=== PATIENT | male | born 1975 | race Two or more races ===

== ENCOUNTER → 2018-03-10 | Outpatient (CLI) | payer MEDICARE, OTHER ==
[~2018-03-10] MED LIST: ACET500 PO; AMLO5 PO; ATOR10 PO; ATOR20 PO; Aranesp60 MCG/11 INJ; Bactrim Ds Tab1 EACH PO; CALCIUM CITRAT1 EAC3 PO; CIPR250 PO; DIAZ5 PO; FURO20 PO; FURO40 PO; Flagyl500 MG PO; GABA100 PO; HYDR10 PO; HYDRA25 PO; HYDSUL200 PO; MERIBIN5 MG PO; METR500 PO; NAPR500 PO; NEBI5 PO; NYST100SU PO; Naprosyn500 MG PO; Norco 5-325 Ta1 EACH PO; OMEP20ER PO; ONDA8 PO; OXYC5 PO; PERFECT IRON25 MG PO; PRED20 PO; Percocet 5-3251 EACH PO; Prednisone20 MG PO; RAMI5 PO; RXNAPNA550 PO; SIME80CH PO; SULTRIDS PO; TAMS.4ER PO; TRAM50 PO; Ultram50 MG PO; Valium5 MG PO; Vitamin D2000 UNIT PO; Zithromax250 MG PO; Zofran4 MG PO; Zofran8 MG PO
== END | disposition home or self-care (01) ==
LOC: LAB DAV 18:10
DX: R51 Headache (principal)
CPT/HCPCS: 85651

== ENCOUNTER 2018-07-30 19:47 | Inpatient (IN) | payer MEDICARE, OTHER ==
[~2018-07-30] VITALS: Ht 195.6 cm; Wt 96.4 kg
[~2018-07-30 19:47] MED LIST changes: +Calcium Acetat667 MG PO; +LOSA50 PO
[2018-07-30 20:24] LABS: BASOPHILS ABSOLUTE AUTO 0.06 K/mm3 (0.00-0.23); BASOPHILS PERCENT AUTO 1 % (0-2); EOSINOPHILS ABSOLUTE AUTO 0.22 K/mm3 (0.00-0.68); EOSINOPHILS PERCENT AUTO 3 % (0-6); Hematocrit 33.9 % (37.0-53.0); Hemoglobin 10.8 g/dL (13.5-17.5); IMMATURE GRAN ABSOLUTE AUTO 0.02 K/mm3 (0.00-0.10); IMMATURE GRAN PERCENT AUTO 0 % (0-1); LYMPHOCYTES ABSOLUTE AUTO 1.99 K/mm3 (0.84-5.20); LYMPHOCYTES PERCENT AUTO 25 % (21-46); MONOCYTES ABSOLUTE AUTO 1.21 K/mm3 (0.16-1.47); MONOCYTES PERCENT AUTO 15 % (4-13); Mean Corpuscular HGB Conc 31.9 g/dL (31.5-36.5); Mean Corpuscular Volume 97 fL (80-100); Mean Platelet Volume 10.7 fL (9.1-12.4); NEUTROPHILS ABSOLUTE AUTO 4.58 K/mm3 (1.96-9.15); NEUTROPHILS PERCENT AUTO 57 % (41-73); Platelet Count 260 K/mm3 (150-400); RDW Coefficient Variation 12.7 % (11.7-14.2); RDW Standard Deviation 45.3 fL (35.1-46.3); Red Blood Cell Count 3.48 M/mm3 (4.30-5.90); White Blood Cell Count 8.08 K/mm3 (4.00-11.30)
[2018-07-30 20:30] LABS: Calcium, Ionized (POC) 1.01 mmol/L (1.10-1.46); Chloride (POC) 104 mmol/L (98-108); Creatinine (POC) 16.7 mg/dL (0.8-1.3); Glucose (ISTAT POC) 91 mg/dL (70-99); Hemoglobin (POC) 10.2 g/dL (13.5-17.5); Potassium (POC) 5.1 mmol/L (3.5-5.5); Sodium (POC) 143 mmol/L (135-148); Total CO2 (POC) 26 mmol/L (21-32)
[2018-07-30 20:54] LABS: Troponin I 0.047 ng/mL (0.000-0.040)
[2018-07-30 21:17] LABS: Albumin, Blood 3.3 g/dL (3.4-5.0); Albumin/Globulin Ratio 1.1 (0.8-1.8); Bilirubin, Total 0.7 mg/dL (0.1-1.0); Bun/Creatinine Ratio 4.4 (12.0-20.0); Calcium, Blood 8.6 mg/dL (8.5-10.1); Creatinine, Blood 17.8 mg/dL (0.60-1.20); Potassium, Blood 5.4 mmol/L (3.5-5.5); Total Protein, Blood 6.3 g/dL (6.4-8.2)
[2018-07-30] MEDS ORDERED: ATEN25 PO (21:32)
[2018-07-30] MEDS ORDERED: Calcium Acetat667 MG PO (21:33)
[2018-07-30] MEDS ORDERED: DOCU100 PO (21:34)
[2018-07-30] MEDS ORDERED: CLOP75 PO (21:34)
[2018-07-30] MEDS ORDERED: LOSA50 PO (21:34)
[2018-07-30] MEDS ORDERED: OXYC10ER PO (21:38)
[2018-07-30] MEDS ORDERED: HYDSUL200 PO (21:41)
[2018-07-30] MEDS ORDERED: HYDRA25 PO (21:41)
[2018-07-30] MEDS ORDERED: AMLO5 PO (21:42)
[2018-07-30] MEDS ORDERED: GABA100 PO (21:42)
[2018-07-30 22:50] LABS: Magnesium, Blood 2.3 mg/dL (1.6-2.4); Phosphorus, Blood 3.9 mg/dL (2.5-4.9)
[2018-07-31] MEDS ORDERED: ROPI.25 (01:05)
--- NOTE | 2018-07-31 02:07 | NUR ---
ADMISSION: REPORT RECIEVED FROM REJI ED RN. PT TO UNIT AT ABOUT 0045. UPON ASSESSMENT PT IS DROWSY, AWAKENS TO VOICE AND IS A/O. BP CONTINUES TO BE ELEVATED AT 240/126, PT REPORT HE DOES HAVE A SMALL HEADACHE AND SOMEWHAT NAUSEATED. DECLINES NEED FOR MEDS AT THIS TIME AND STATES HE WANTS TO REST. PT RR AT 26, PT PUT ON 2L NC, PT DENIES SOB. ADMISSION CHARTING COMPLETED WITH PT SIGNIFICANT OTHER AT BEDSIDE. WILL CTM, AND FREQUENTLY ROUND
--- NOTE | 2018-07-31 02:13 | NUR ---
PT BP 220/127 AT 0153, DR. PINA CALLED AT 0155 CONCERNING PT BP AND MD MADE AWARE OF PT RR AND EFFORT SEE NEW ORDERS, WILL CTM.
--- NOTE | 2018-07-31 04:11 | NUR ---
PT GIVEN 10MG LABETALOL AND BUMEX AT 0240 AT 0358 BP CONTINUES TO BE ELEVATED AT 215/136. PT IS SLEEPING, DENIES NEED FOR PAIN OR NAUSEA MEDS AND ALL OTHER VSS. PT GIVEN HYDRALAZINE 20MG AT 0404, AND PAGE MADE TO
--- NOTE | 2018-07-31 04:31 | NUR ---
NEW ORDER FROM DR. PINA TO GIVE PT 0900 DOSE OF COZAAR AND NORVASC NOW. WILL GIVE AND CTM
[2018-07-31 04:36] LABS: Hemoglobin 10.9 g/dL (13.5-17.5)
[2018-07-31 04:54] LABS: Magnesium, Blood 2.6 mg/dL (1.6-2.4)
[2018-07-31 04:59] LABS: Cortisol, AM 6.3 ug/dL (6.7-22.6)
[2018-07-31 05:01] LABS: Albumin, Blood 3.4 g/dL (3.4-5.0); Anion Gap 11 mmol/L (6-16); Blood Urea Nitrogen 86 mg/dL (8-24); Bun/Creatinine Ratio 4.7 (12.0-20.0); CO2, Blood 24 mmol/L (21-32); Calcium, Blood 8.7 mg/dL (8.5-10.1); Chloride, Blood 107 mmol/L (98-108); Glomerular Filtration Rate 3 (60-); Glucose, Blood 126 mg/dL (70-99); Phosphorus, Blood 3.6 mg/dL (2.5-4.9); Potassium, Blood 5.6 mmol/L (3.5-5.5); Sodium, Blood 142 mmol/L (136-145)
--- NOTE | 2018-07-31 05:56 | NUR ---
SUMMARY: SEE PREVIOUS NOTES. NO ACUTE CHANGE SINCE ADMISSION. PT LAST BP 201/112 AT 0509, WILL RECHECK BEFORE SHIFT CHANGE. DR. PINA AWARE OF PT STATUS. PT REPORTS "SMALL HEADACHE" AND DENIES NAUSEA. ALL OTHER VSS, PT DENIES SOB, A/O, NO EMESIS. PT ABLE TO VOID X1. PT GIRLFRIEND AT BEDSIDE. PLAN IS FOR PT TO HAVE DIALYSIS TODAY. DR. ROBERTS CONSULTED. WILL CTM AND REPORT TO DAY RN
--- NOTE | 2018-07-31 07:46 | NUR ---
GRUPO AND VAISHNAVI GIVEN AT 0507 BY OMAR RN.
--- NOTE | 2018-07-31 09:41 | NUR ---
PT TO DIALYSIS
--- NOTE | 2018-07-31 14:27 | NUR ---
Echocardiogram completed.
--- NOTE | 2018-07-31 16:28 | NUR ---
FEBRILE PT HAD TEMP OF 101.3. MEDICATED PER ORDERS W/TYLENOL. RECHECKED AND TEMP NOW 100.9. NOTIFIED DR NICOLE.
--- NOTE | 2018-07-31 17:36 | NUR ---
SUMMARY PT RESTING IN BED. CONTINUES TO BE HYPERTENSIVE. BP IMPROVED SLIGHTLY FROM ADMIT. PT HAD DYALYSIS THIS AM. SPIKED FEVER OF 101.3 THIS AFTERNOON. GAVE TYLENOL PER ORDERS AND NOTIFIED DR NICOLE. ORDERS OBTAINED. MEDICATED THIS AFTERNOON FOR NAUSEA PER ORDERS. PT PLEASANT AND COOPERATIVE.
[2018-07-31 18:24] LABS: Source, Urine Voided
[2018-07-31 18:34] LABS: Appearance, Urine Clear (Clear); Bilirubin, Urine Neg (Neg); Blood, Urine 3+ (Neg); Color, Urine Yellow (P-Yellow); Glucose Qualitative, Urine 2+ (Neg); Ketones, Urine Neg (Neg); Leukocyte Esterase, Urine Neg (Neg); Nitrite, Urine Neg (Neg); Protein, Urine 4+ (Neg); Specific Gravity, Urine 1.015 (1.003-1.022); Urobilinogen, Urine NORM (Normal)
[2018-07-31 18:41] LABS: White Blood Cells, Urine 0-2 /hpf (0-5)
[2018-07-31 18:42] LABS: Bacteria Not Seen /hpf; Red Blood Cells, Urine 0-2 /hpf (0-2); Squamous Epithelial Cells Not Seen /hpf (Few)
[2018-08-01 04:13] LABS: BASOPHILS ABSOLUTE AUTO 0.05 K/mm3 (0.00-0.23); BASOPHILS PERCENT AUTO 1 % (0-2); EOSINOPHILS ABSOLUTE AUTO 0.08 K/mm3 (0.00-0.68); EOSINOPHILS PERCENT AUTO 1 % (0-6); Hematocrit 30.5 % (37.0-53.0); Hemoglobin 9.5 g/dL (13.5-17.5); IMMATURE GRAN ABSOLUTE AUTO 0.01 K/mm3 (0.00-0.10); IMMATURE GRAN PERCENT AUTO 0 % (0-1); LYMPHOCYTES ABSOLUTE AUTO 2.64 K/mm3 (0.84-5.20); LYMPHOCYTES PERCENT AUTO 40 % (21-46); MONOCYTES ABSOLUTE AUTO 1.04 K/mm3 (0.16-1.47); MONOCYTES PERCENT AUTO 16 % (4-13); Mean Corpuscular HGB 30.4 pg (26.0-34.0); Mean Corpuscular HGB Conc 31.1 g/dL (31.5-36.5); Mean Corpuscular Volume 98 fL (80-100); Mean Platelet Volume 10.6 fL (9.1-12.4); NEUTROPHILS ABSOLUTE AUTO 2.81 K/mm3 (1.96-9.15); NEUTROPHILS PERCENT AUTO 42 % (41-73); Platelet Count 242 K/mm3 (150-400); RDW Coefficient Variation 13.3 % (11.7-14.2); RDW Standard Deviation 47.5 fL (35.1-46.3); Red Blood Cell Count 3.12 M/mm3 (4.30-5.90); White Blood Cell Count 6.63 K/mm3 (4.00-11.30)
[2018-08-01 04:42] LABS: Magnesium, Blood 2.4 mg/dL (1.6-2.4)
[2018-08-01 05:30] LABS: Albumin, Blood 2.9 g/dL (3.4-5.0); Anion Gap 8 mmol/L (6-16); Blood Urea Nitrogen 69 mg/dL (8-24); Bun/Creatinine Ratio 4.7 (12.0-20.0); CO2, Blood 31 mmol/L (21-32); Chloride, Blood 103 mmol/L (98-108); Glomerular Filtration Rate 4 (60-); Glucose, Blood 103 mg/dL (70-99); Phosphorus, Blood 5.7 mg/dL (2.5-4.9); Potassium, Blood 5.6 mmol/L (3.5-5.5); Sodium, Blood 142 mmol/L (136-145)
--- NOTE | 2018-08-01 06:10 | NUR ---
SUMMARY PT WITH HTN ISSUES NOTED DURING DAY AND ONGOING TONIGHT. I CALLED DOCTOR AND RECEIVED ORDERS TO CHANGE SOME OF PTS PO DOSING AND INTERVALS. DR ODOM DID NOT WISH FOR ME TO TREAT WITH PRN IV DOSING WHILE MAKING THE ADJUSTMENTS. PTS HTN HAS IMPROVED TONIGHT WITH INCREASED DOSING AND FREQ OF HYDRALAZINE AND HE WILL BE TAKING AN INCREASED DOSE OF ATENOLOL STARTING THIS AM WELL. DR ROBERTS ALSO HERE TO SEE PT TONIGHT.I DISCUSSED WITH HIM ORDERS CHANGED PER DR ALDRIDGE.ALSO, PT/GIRLFRIEND REQUESTED PT HAVE ATIVAN FOR ONGOING HEADACHE THEY FELT ATIVAN HE RECEIVED PRIOR WAS HELPFUL FOR THIS.I GAVE ATIVAN PER NEW ORDER RECEIVED FROM DR ROBERTS. PT SLEEPING AT THIS TIME.CREAT AHS DECREASED SINCE DIALYSIS. NO DIALYSIS ORDERED FOR TODAY. AV FISTULA L UPPER ARM CONT WITH STRONG BRUIT AND THRILL.
--- NOTE | 2018-08-01 11:13 | NUR ---
DIALYSIS SURGICAL FLOOR RN CALLED AND SAID PT REFUSED DIALYSIS. DISCUSSED 5.6K+ WITH HER. WILL NOTIFY DR ROBERTS.
--- NOTE | 2018-08-01 11:16 | NUR ---
PT REFUSED HD TODAY, DR. ROBERTS NOTIFIED, HE WOULD LIKE PT TO HAVE HD FOR AT LEAST 2 HRS TODAY DUE TO POTASSIUM LEVEL OF 5.6, EXPLAINED TO PT AND PT AGREED TO 2 HRS. OF HD TODAY, ENLISTED ADVISOR ANA NOTIFIED.
--- NOTE | 2018-08-01 11:18 | NUR ---
DIALYSIS DR ROBERTS TALKED THE INTO RUNNING DUE TO K+
--- NOTE | 2018-08-01 17:51 | NUR ---
SUMMARY PT HAD HD TODAY, CONT. TO HAVE ELEVATED BP, SLIGHTLY BETTER AFTER TAKING BP MEDS THEN GOES BACK UP, DR. ROBERTS AWARE, NO C/O OF PAIN OR ANY OTHER DISCOMFORT TODAY, NO ACUTE CHANGES THIS SHIFT.
--- NOTE | 2018-08-02 02:42 | NUR ---
HEADACHE: PT C/O HEADACHE. PT REP PAIN INCREASING, IS CURRENTLY WORSE IT HAS BEEN ALL DAY. PT BP RECHECKED, CONT TO BE ELEVATED. CALL PLACED TO MD. PT HARMON, VITALS AND CURRENT BP AND PAIN MEDS REVIEWED W/MD. NEW ORDER FOR PRN PAIN MEDS REC AND TO CONT TO MEDICATE PER PRN BP MED ORDERS.
[2018-08-02 05:32] LABS: Hematocrit 32.7 % (37.0-53.0); Hemoglobin 10.2 g/dL (13.5-17.5)
[2018-08-02 05:57] LABS: Magnesium, Blood 2.3 mg/dL (1.6-2.4)
[2018-08-02 06:07] LABS: Anion Gap 9 mmol/L (6-16); Blood Urea Nitrogen 64 mg/dL (8-24); CO2, Blood 31 mmol/L (21-32); Chloride, Blood 102 mmol/L (98-108); Glomerular Filtration Rate 5 (60-); Glucose, Blood 102 mg/dL (70-99); Phosphorus, Blood 5.2 mg/dL (2.5-4.9); Potassium, Blood 5.6 mmol/L (3.5-5.5); Sodium, Blood 142 mmol/L (136-145)
--- NOTE | 2018-08-02 07:22 | NUR ---
PT BP REMAINED ELEVATED T/O NIGHT. PT DENIED CP/PRESSURE/SOB. BP MGD PER SCHTDULED AND PRN BP MEDS W/VERY LITTLE EFFECT. PT DID C/O WORSENING HEADACHE THIS AM; NOTIFIED, NEW PAIN MED ORDERS REC. PT DID REP SOME RELIEF AFTER MEDICATED. PT DENIED N/V, IS VOIDING URINE W/O DIFFICULTY. PT AMB INDEP, DENIED DIZZINESS WHEN UP. HOSPITALIST NOTIFIED OF BP TREND, DR ROBERTS IN THIS AM. PLAN FOR RENAL DOPPLAR TODAY. PT USING CALL LIGHT FOR ASSISTANCE, REP GIVEN TO DAY RN.
--- NOTE | 2018-08-02 08:19 | NUR ---
TELEPHONE CALL WITH DR ROBERTS: PT REFUSING DIALYSIS.
--- NOTE | 2018-08-02 08:23 | NUR ---
TELEPHONE CALL WITH IMAGING, DOPPLER AND US DONE ON . DOPPLER NOT READ YET, TECH WILL FOLLOW UP WITH DOCTOR.
--- NOTE | 2018-08-02 12:28 | NUR ---
CONSENT FOR CARE PT GAVE THIS FACULTY NEUROPSYCHOLOGIST PERMISSION TO ASSIST WITH CARE
--- NOTE | 2018-08-02 16:06 | NUR ---
Permission to access Patient gave this student nurse permission to access chart.
--- NOTE | 2018-08-02 18:42 | NUR ---
SHIFT SUMMARY PT A&OX4, TELE SINUS @ 63. HTN TX PER EMAR T/O SHIFT. HARMON PAIN TX WITH 50 MCGS FENT Q4. NAUSEA TX X1 WITH ZOFRAN, PT TAKING ORAL 5MG REGLAN. DECLINED DIALYSIS AND HEPARIN. AMB IND TO BRP, REP VOIDING WELL. DENIES CP/SOB AND NEED FOR OXYGEN. S/O AT BEDSIDE T/O SHIFT. WILL CTM & TX PER EMAR UNTIL REPORT GIVEN TO ONCOMING NOC RN.
[2018-08-03 06:22] LABS: Hematocrit 31.9 % (37.0-53.0)
[2018-08-03 06:38] LABS: Magnesium, Blood 2.5 mg/dL (1.6-2.4)
[2018-08-03 06:55] LABS: Albumin, Blood 3.1 g/dL (3.4-5.0); Anion Gap 10 mmol/L (6-16); Blood Urea Nitrogen 73 mg/dL (8-24); Bun/Creatinine Ratio 4.9 (12.0-20.0); CO2, Blood 29 mmol/L (21-32); Calcium, Blood 8.3 mg/dL (8.5-10.1); Chloride, Blood 102 mmol/L (98-108); Glomerular Filtration Rate 4 (60-); Glucose, Blood 98 mg/dL (70-99); Phosphorus, Blood 6.8 mg/dL (2.5-4.9); Potassium, Blood 5.2 mmol/L (3.5-5.5); Sodium, Blood 141 mmol/L (136-145)
--- NOTE | 2018-08-03 07:27 | NUR ---
SUMMARY NO ACUTE CHANGES NOTED THROUGH THE NIGHT. NAUSEA MEDICATED X1. PT REFUSED 2100 OXYCODONE DUE TO NAUSEA AND ALSO REFUSED 2100 HEPERIN. PT'S IS AT BEDSIDE. CALL LIGHT IN REACH. PT NPO THIS AM FOR TESTING.
--- NOTE | 2018-08-03 11:18 | NUR ---
Patient is resting, appears to be sleeping. Girlfriend at bedside. I introduce myself and explain my role in the hospital. Instructed that since the patient lives with chronic illness, filling out an advance directive is desired to ensure correct interventions and treatments. She states that he has been talked to before, many times. He choses not to fill one out each time, but she is happy to keep the information for him to read through. Advance directive and booklet, Life Sustaining Treatments, along with my card is given to girlfriend. Will remain available.
--- NOTE | 2018-08-03 14:21 | NUR ---
PT TO HEART CENTER AT APROX 8257
--- NOTE | 2018-08-03 14:30 | NUR ---
PT LEFT FLOOR VIA WC WITH [facility] FOR PROCEDURE
--- NOTE | 2018-08-03 19:30 | NUR ---
ASSUMED CARE- PT CARE ASSUMED AT APPROXIMATELY 1915. PT CURRENTLY RESTIN IN BED WITH S.O. AT BEDSIDE. ARMATURE INSPECTOR FINISHING TREATMENT. HOB CURRENTLY AT 30 DEGREES, PT TOLERATING WELL. R GROIN SITE WITH ANGIO-SEAL IN PLACE. PINPOINT INCISION WITH SCANT AMOUNT OF BLOOD UNDER CLEAR PORTION OF DRESSING. NO BRUISING, HEMATOMA OR SWELLING TO SITE. PT REPORTS SOME TENDERNESS TO LATERAL SIDE OF HIP NEXT TO SITE. PPP. CAP REFILL <3 SECONDS IN ALL EXTREMITIES. PT EDUCATED ON PHYSICIAN ORDERS AND HOB RAISING INCREMENTS AND ORDERS TO REMAIN ON BEDREST FOR 6 HOURS POST PROCEDURE- PT VERBALIZES UNDERSTANDING. WILL CONTIINUE WITH ASSESSMENT AND MONITORING. BED IN LOW POSITION, CALL LIGHT IN REACH.
--- NOTE | 2018-08-03 19:39 | NUR ---
END OF SHIFT PT HAS HAD NO CHANGES TO THE ASSESSMENT, PT GROIN SITE WNL, PT EDUCATED ON THE CARE OF THE SITE, PT HAS NO PAIN IN THE SITE
[2018-08-04 04:09] LABS: Hematocrit 31.6 % (37.0-53.0); Hemoglobin 9.7 g/dL (13.5-17.5)
[2018-08-04 04:36] LABS: Magnesium, Blood 2.3 mg/dL (1.6-2.4)
[2018-08-04 04:40] LABS: Anion Gap 6 mmol/L (6-16); Blood Urea Nitrogen 64 mg/dL (8-24); Bun/Creatinine Ratio 5.3 (12.0-20.0); CO2, Blood 35 mmol/L (21-32); Calcium, Blood 7.8 mg/dL (8.5-10.1); Chloride, Blood 102 mmol/L (98-108); Glomerular Filtration Rate 5 (60-); Glucose, Blood 91 mg/dL (70-99); Phosphorus, Blood 6.2 mg/dL (2.5-4.9); Potassium, Blood 5.7 mmol/L (3.5-5.5); Sodium, Blood 143 mmol/L (136-145)
--- NOTE | 2018-08-04 05:43 | NUR ---
SHIFT SUMMARY- PT HAS REMAINED AOX4 THROUGHOUT SHIFT. PLEASANT AND COOPERATIVE WITH CARE. PT CONTINUES TO BE HYPERTENSIVE THROUGHOUT THE NIGHT, ALL OTHER VSS. PT DENIES CHEST PAIN OR SHORTNESS OF BREATH. GROIN SITE HAS HAD NO CHANGES, EVEN POST AMBULATION, REMAINS WNL. PT CONTINUES TO REPORT TENDERNESS TO SITE, BUT REPORTS THAT IT IS TOLERABLE. NO OTHER CHANGES FROM INITIAL ASSESSMENT. WILL CONTINUE TO MONITOR AND REPORT TO ONCOMING RN. BED IN LOW POSITION, CALL LIGHT IN REACH.
--- NOTE | 2018-08-04 19:30 | NUR ---
PM NOTE. ASSUMED CARE OF PT APROX 1900. PT IS A&Ox4 PLEASENT AND COOPERATIVE WITH CARE. PT IS ADMITTED DUE TO HYPERTENSIVE URGENCY. PT ALSO HAS ESRD AND IS ON DIALYSIS, PT HAS A RIGHT GROIN SITE FROM A RENAL STENTING PROCUEDURE ON 08/03/17. TELE INTACT, NSR IN THE 60'S PER SENIOR TELECOMMUNICATIONS TECHNICIAN. PT'S BP 185/113. NO EDEMA NOTED. PT'S L/S CLEAR T/O. PT IS ON RA WITH STATS >90%, RESPERATIONS ARE EVEN AND UNLABORED. BT PRESENT AND HYPERACTIVE. RIGHT GROIN SITE IS C/D/I, NO SWELLING OR REDNESS NOTED, PT COMPLAINS OF 6/10 PAIN AT THE SITE. CALL LIGHT IN REACH, BED IS LOCKED AND LOW, WILL CONTINUE TO MONITOR.
--- NOTE | 2018-08-04 19:32 | NUR ---
END OF SHIFT PT IS TOLERATING MOVEMENT WELL, VSS, PT HAS HAD NO CHANGES TO THE ASSESSMENT, PT ABLE TO AMULATE WELL
[2018-08-05 04:15] LABS: Hematocrit 30.2 % (37.0-53.0); Hemoglobin 9.6 g/dL (13.5-17.5)
[2018-08-05 04:40] LABS: Magnesium, Blood 2.3 mg/dL (1.6-2.4)
[2018-08-05 04:45] LABS: Anion Gap 9 mmol/L (6-16); Blood Urea Nitrogen 80 mg/dL (8-24); Bun/Creatinine Ratio 5.6 (12.0-20.0); CO2, Blood 28 mmol/L (21-32); Chloride, Blood 106 mmol/L (98-108); Glomerular Filtration Rate 4 (60-); Glucose, Blood 93 mg/dL (70-99); Phosphorus, Blood 6.7 mg/dL (2.5-4.9); Potassium, Blood 5.8 mmol/L (3.5-5.5); Sodium, Blood 143 mmol/L (136-145)
--- NOTE | 2018-08-05 05:59 | NUR ---
SHIFT SUMMARY. PT'S BP HAS BEEN HYPERTENSIVE ALL SHIFT, PT HAS BEEN MEDICATED FOR HTN AND PAIN PER EMAR WITH VERY LITTLE RESULTS. PT'S OTHER VS HAVE BEEN STABLE T/O SHIFT. PT HAS BEEN IND IN THE ROOM, PT HAS REFUSED TO USE THE URINAL AND WHEN ASKED BY THIS RN IF HE HAD VOIDED THIS SHIFT HE SAID "YES." WHEN ASKED HOW MANY TIMES HE SAID "I DON'T KNOW." WHEN THIS RN TRIED TO ENCOURAGE MORE INFORMATION THE PT BECAME UPSET AND SAID "I TOLD YOU I DON'T KNOW!" WHEN ASKED IF HE HAD A BM THIS SHFIT THE PT STATED THE SAME "YES, AND I DON'T KNOW HOW MANY." AGAIN WHEN THIS RN TRIED TO ESTABLISH FURTHER INFORMATION PT SHUT DOWN AND DID NOT WANT TO ANSWER. AT APROX 0500 WHEN THIS RN WAS MEDICATING PT'S HYPERTENSION PT REQUESTED A DRINK OF WATER, THIS RN REMINDED THE PT THAT HE WAS NPO FOR A PROCEDURE THIS AM. PT STATED "I KNOW AND I DON'T CARE BECAUSE I AM NOT GOING TO HAVE THE PROCEDURE DONE, THESE PEOPLE ARE JUST STRINGING ME ALONG AND WE ARE GETTING NO WHERE AND I HAVE STUFF TO DO AT HOME. SO I AM JUST GOING TO DO DIALYSIS AND THEN LEAVE." PT THEN STATED THAT HE FELT NAUSEOUS AND THAT IS WHY HE WANTED THE WATER. PT WAS THOROUGHLY EDUCATED ON WHY HE WAS NPO, THE IMPORTANCE OF THE PROCEDURE AND WHY THE DOCTORS WERE TRYING TO FIND A WAY TO HELP HIS HYPERTENSION AND THE RISKS OF PROLONGED HYPERTENSION. PT STATED HIS UNDERSTANDING WELL AND THE FACT THAT HE DID NOT CARE. CHARGE NURSE WAS MADE AWARE OF PT'S STATEMENTS. THIS RN OFFERED THE PT MOUTH SWABS AND ZOFRAN PER EMAR. PT AGREED. WHEN THIS RN GAVE THE PT THE CUP WITH A SMALL AMOUNT OF WATER AND THE MOUTH SWABS THE PT TOOK THE CUP AND DRANK ALL OF THE WATER, STATING AGAIN THAT HE DID NOT CARE IF HE WAS SUPPOSED TO DRINK ANYTHING OR NOT. CALL LIGHT IN REACH, BED IS LOCKED AND LOW WILL CONTINUE TO MONITOR UNTIL REPORT IS GIVEN TO ONCOMING RN.
--- NOTE | 2018-08-05 12:51 | NUR ---
PERMISSION PT GAVE VERBAL PERMISSION TO LAY UP OPERATOR TO ALLOW TO WORK WITH HIM TODAY 08/05/18.
--- NOTE | 2018-08-05 13:14 | NUR ---
PT OFF FLOOR TO DIALYSIS
--- NOTE | 2018-08-05 17:33 | NUR ---
END OF SHIFT; PT WENT TO SURGERY TODAY FOR ULTRASOUND GUIDED SURGERY OF HIS KIDNEYS TO TAKE BLOOD SAMPLES FOR LAB TESTS. HE HAS A RIGHT GROIN SITE FOR SAME. PT RECEIVED 2.5 HOURS OF DIALYSIS TODAY. RETURNED TO PCU AFTER DIALSYS WITH HTN OF 203 SYSTOLIC GIVEN HYDRLALAZINE FOR HTN AND BP IS NOW 180 SYSTOLIC. PT COMPLAINS OF HEADACHE AND IS GIVEN MEDICATION FENTANYL PER EMAR OF 50MCG IVP. CURRENTLY PATIENT IS RESTING COMFORTABLY EYES CLOSED LIGHTS LOW. WILL CONTINUE TO MONITOR THIS PATIENT CLOSELY UNTIL REPORT AND HAND OFF TO NOC SHIFT RN.
--- NOTE | 2018-08-05 19:40 | NUR ---
PM NOTE. ASSUMED CARE OF PT APROX 1900, PT IS A&Ox4. PT WAS ADMITTED DUE TO HYPERTENSIVE URGENCY. PT COMPLAINS OF SEVERE HEADACHE AND NAUSEA AT THIS TIME AND REQUESTS FENTANYL AND ATIVAN STATING THEY ARE "THE ONLY THING THAT WORKS." PT WAS GIVEN SCHEDULED ATIVAN BUT IT WAS NOT TIME TO GIVE THE IV FENTANYL. PT WAS MADE AWARE IF THIS AND STATED "OH MY GOD YOU PEOPLE!" THIS RN EXPLAINED TO THE PT THAT NURSING STAFF CANNOT GIVE MEDICATIONS WITHOUT A PROVIDER'S ORDER, BUT THAT THIS RN WOULD CALL THE PROVIDER AND SEE WHAT THEY SUGGESTED. PT'S BP AT THIS TIME WAS 191/85, PT WAS GIVEN IV MEDICATIONS FOR BP PER EMAR. THIS RN THEN CALLED THE PROVIDER AND ORDERS WERE OBTAINED FOR IV REGLAN. PT WAS MEDICATED PER ORDERS. TELE INTACT, NSR IN THE 60'S-70'S. NO EDEMA NOTED ON ASSESSMENT. PT'S RIGHT GROIN SITE C/D/I, NO REDNESS OR SWELLING NOTED. FISTULA ON THE LEFT UPPER ARM HAS BRUIT AND THRILL. L/S CLEAR T/O PT ON RA, RESPERATIONS EVEN AND UNLABORED. BT PRESENT AND HYPERACTIVE, ABD IS SOFT AND NONTENDER TO PALP. CALL LIGHT IN REACH, BED IS LOCKED AND LOW WILL CONTINUE TO MONITOR.
--- NOTE | 2018-08-05 22:44 | NUR ---
PT UPDATE. NOTIFIED BY TELE MONITOR THAT PT'S ROOMMATE HAD CALLED AND SAID THE PT WAS AT HOME. WENT TO PT'S ROOM AND NOTICED THAT TELE AND PT'S ARM BAND WAS AT THE BEDSIDE AND PT WAS NOT IN THE ROOM. NURSING MARKETING AND PROMOTIONS MANAGER NOTIFIED.
[2018-08-07 03:11] LABS: ALDOS/RENIN RATIO 3.7 (0.0-30.0); ALDOSTERONE 1.9 ng/dL (0.0-30.0)
== END 2018-08-05 21:00 | disposition left against medical advice (07) | DRG 304 ==
LOC: ER 19:47 → MEDS 19:48 → SURS 19:48 → PCU 08-03 16:09
PROVIDERS: Emergency Medicine; Internal Medicine; Internal Medicine Nephrology; Physician Assistant; ADMIT Hospitalist
PROC: 5A1D70Z Performance of Urinary Filtration, Intermittent, Less than 6 Hours Per Day (ICD-10-PCS; principal; 2018-07-31)
PROC: B4101ZZ Fluoroscopy of Abdominal Aorta using Low Osmolar Contrast (ICD-10-PCS; 2018-08-05)
PROC: B4181ZZ Fluoroscopy of Bilateral Renal Arteries using Low Osmolar Contrast (ICD-10-PCS; 2018-08-05)
DX: I16.1 Hypertensive emergency (principal); N18.6 End stage renal disease; N25.81 Secondary hyperparathyroidism of renal origin; M32.9 Systemic lupus erythematosus, unspecified; I12.0 Hypertensive chronic kidney disease with stage 5 chronic kidney disease or end stage renal disease; K21.9 Gastro-esophageal reflux disease without esophagitis; N40.0 Benign prostatic hyperplasia without lower urinary tract symptoms; D63.1 Anemia in chronic kidney disease; E87.70 Fluid overload, unspecified; Z99.2 Dependence on renal dialysis; I70.1 Atherosclerosis of renal artery; E87.5 Hyperkalemia; E88.09 Other disorders of plasma-protein metabolism, not elsewhere classified; E83.39 Other disorders of phosphorus metabolism
CPT/HCPCS: 36011; 36252; 36415; 36416; 71046; 75825; 75833; 75893; 76770; 80047; 80053; 80069; 80400; 81001; 82088; 82384; 82533; 83735; 83970; 84100; 84132; 84244; 84443; 84484; 85014; 85018; 85025; 93005; 93010; 93306; 93975; 96372; 96374; 96375; 96376; 99152; 99153; 99285-25; C1760; C1769; C1887; C1894; G0378; J0360; J0834; J1100; J1170; J1200; J1644; J2060; J2250; J2405; J2765; J3010; J7030; J7040; Q9967